=== PATIENT | female | born 1940 | race Caucasian/White ===

== ENCOUNTER 2019-09-13 03:21 | Observation (INO) | payer MEDICARE, OTHER ==
[~2019-09-13] VITALS: Ht 154.9 cm; Wt 49.0 kg
[2019-09-13 04:06] LABS: HEMATOCRIT 42.6 % (37.0-47.0); HEMOGLOBIN 14.7 g/dl (12.5-16.0); MEAN CELL VOLUME 92 fl (80.0-100.0); MEAN CORPUSCULAR HEMOGLOBIN 32 pg (27.0-31.0); MEAN CORPUSCULAR HGB CONC 35 g/dl (33.0-37.0); MEAN PLATELET VOLUME 8.5 fl (7.4-10.4); PLATELET COUNT 377 K/mm3 (130-400); RED BLOOD COUNT 4.65 M/mm3 (4.10-5.30); REDCELL DISTRIBUTION WIDTH-CV 12.6 % (11.5-14.5)
[2019-09-13] MEDS ORDERED: TENORMIN 2525 MG/TAB PO (04:11)
[2019-09-13] MEDS ORDERED: COZAAR 50MG50 MG/TAB PO (04:11)
[2019-09-13] MEDS ORDERED: ASPIRIN 81M81 MG/TA2 PO (04:12)
[2019-09-13] MEDS ORDERED: CENTRUM SILVER1 CTB PO (04:12)
[2019-09-13] MEDS ORDERED: CALTRATE-600 W600 MG PO (04:12)
[2019-09-13 04:14] LABS: ALBUMIN 4.3 gm/dL (3.5-5.0); BILIRUBIN,TOTAL 0.6 mg/dL (0.0-1.0); CALCIUM 9.6 mg/dL (8.4-10.2); CREATININE, serum 0.71 (0.52-1.25); POTASSIUM 3.9 mmol/L (3.4-5.0); TOTAL PROTEIN 7.5 gm/dL (6.4-8.2)
[2019-09-13 04:44] LABS: BAND 5 % (0-10); LYMPHOCYTE 4 % (20.0-51.0); NEUTROPHILS 91 % (42.0-75.2); PLATELET ESTIMATE NORMAL (NORMAL)
[2019-09-13 06:45] VITALS: BP 119/60; PULSE 89; TEMP 97.7
--- NOTE | 2019-09-13 06:55 | NUR ---
Patient arrives to floor from ED via bed. Patient is alert and oriented, answers questions appropriately. Patient is hard of hearing, but is able to understand and answer questions. Patient reports that she has mild nausea and pain is localized to the left upper quadrent and back. Bowel sounds are hypoactive but present, patient states that she had a bowel movement in the ED prior to coming to the floor. Patient denies needs at this time, call light within reach.
[2019-09-13 07:24] VITALS: BP 119/60; PULSE 89; TEMP 97.7
--- NOTE | 2019-09-13 10:32 | NUR ---
Initial visit; Patient thanked Foiling Machine Adjuster for offering spiritual care, especially prayer and for calling [facility] to let them know she is a patient at [facility].
[2019-09-13 12:00] VITALS: BP 144/62; PULSE 88; TEMP 97.8
[2019-09-13 13:42] LABS: BASO # 0.1 (0.0-0.2); BASO % 0.5 % (0.0-2.0); EOS % 0.1 % (0-4.0); GRAN # 7.8 (1.4-6.5); LYMPH # 1.4 (1.2-3.4); LYMPH % 14.3 % (20.0-51.0); MEAN CELL VOLUME 91 fl (80.0-100.0); MEAN CORPUSCULAR HGB CONC 35 g/dl (33.0-37.0); MEAN PLATELET VOLUME 8.4 fl (7.4-10.4); MONO # 0.6 (0.1-0.6); MONO % 5.8 % (1.7-9.3); PLATELET COUNT 303 K/mm3 (130-400); RED BLOOD COUNT 3.88 M/mm3 (4.10-5.30); REDCELL DISTRIBUTION WIDTH-CV 12.6 % (11.5-14.5)
[2019-09-13 13:43] LABS: HEMATOCRIT 35.2 % (37.0-47.0); HEMOGLOBIN 12.3 g/dl (12.5-16.0); MEAN CORPUSCULAR HEMOGLOBIN 32 pg (27.0-31.0)
[2019-09-13 13:52] LABS: CREATININE, serum 0.58 (0.52-1.25); POTASSIUM 3.5 mmol/L (3.4-5.0)
[2019-09-13 16:16] VITALS: BP 182/80; PULSE 85; TEMP 98.6
--- NOTE | 2019-09-13 16:21 | NUR ---
Pinion And Wheel Truer met with patient to discuss discharge planning. Patient expressed she is not feeling well but agreed to answer some questions. Patient lives with her Ed in [place] and sees Dr. Keller for primary care. Patient obtains medications from [facility] with no difficulties. Patient does not use any DME and reports independence with ADLS. Patient reports she has DPOA-HC but SW did not locate copy in EMR. SW to continue to follow as needed.
[2019-09-13 19:37] VITALS: BP 155/65; PULSE 82; TEMP 98.8
--- NOTE | 2019-09-13 19:39 | NUR ---
Patient resting in bed at this time. Patient reports that she is still feeling some nausea, and still has a headache, denies further needs at this time. Daughter at bedside, call light within reach.
[2019-09-13 23:51] VITALS: BP 139/57; PULSE 73; TEMP 98.1
--- NOTE | 2019-09-14 01:21 | NUR ---
Patient doing well tonight. alert and oriented. c/o headache at shift change, prn tylenol given and headache resolved. c/o mild upper abd pain. mild distention noted, bowel sounds active. patient had x2 loose brown stools. IVF infusing to R AC IV. tele showing sinus rhythm. tolerating clears, denies nausea. ambulates with standby assist in room. no further needs at this time. will continue to monitor.
[2019-09-14 04:01] VITALS: BP 144/57; PULSE 70; TEMP 97.8
[2019-09-14 06:39] LABS: BASO % 0.5 % (0.0-2.0); EOS % 0.4 % (0-4.0); GRAN % 68.7 % (42.2-75.2); HEMOGLOBIN 11.8 g/dl (12.5-16.0); LYMPH # 1.7 (1.2-3.4); LYMPH % 23.7 % (20.0-51.0); MEAN CELL VOLUME 95 fl (80.0-100.0); MEAN CORPUSCULAR HEMOGLOBIN 32 pg (27.0-31.0); MEAN CORPUSCULAR HGB CONC 34 g/dl (33.0-37.0); MEAN PLATELET VOLUME 8.7 fl (7.4-10.4); MONO # 0.5 (0.1-0.6); MONO % 6.4 % (1.7-9.3); PLATELET COUNT 276 K/mm3 (130-400); RED BLOOD COUNT 3.68 M/mm3 (4.10-5.30); REDCELL DISTRIBUTION WIDTH-CV 12.9 % (11.5-14.5)
[2019-09-14 06:53] LABS: CALCIUM 8.5 mg/dL (8.4-10.2); CREATININE, serum 0.6 (0.52-1.25); HEMATOCRIT 34.8 % (37.0-47.0); POTASSIUM 3.7 mmol/L (3.4-5.0)
--- NOTE | 2019-09-14 08:00 | NUR ---
Patient resting in bed eating breakfast at this time. Patient is alert and oriented, answers questions appropriately. Patient reports that she does not have abomen or back pain at this time, and is not nauseous. Patient reports that she has had several loose stools overnight. Patient denies needs at this time, call light within reach.
[2019-09-14 08:01] VITALS: BP 153/59; PULSE 69; TEMP 97.5
[2019-09-14 11:36] VITALS: BP 149/62; PULSE 70; TEMP 97.3
[2019-09-14 15:30] VITALS: BP 137/61; PULSE 65; TEMP 98.1
--- NOTE | 2019-09-14 17:50 | NUR ---
Discharge teaching completed. Patient and daughter present. Discussed discharge instructions, activity and diet restrictions, follow up appointments, and indications of complications. Patient and daughter deny questions, concerns, or needs. IV removed, catheter intact, hemostasis achieved. Patient dressed and escorted to patient entrace where she entered a private vehicle.
== END 2019-09-14 18:00 | disposition home or self-care (01) ==
LOC: COL.ER 03:21 → SURG 05:51
PROVIDERS: Emergency Medicine; ADMIT Surgery
DX: R11.2 Nausea with vomiting, unspecified (principal); R10.9 Unspecified abdominal pain; Z90.710 Acquired absence of both cervix and uterus; Z85.3 Personal history of malignant neoplasm of breast; Z88.0 Allergy status to penicillin; Z88.1 Allergy status to other antibiotic agents; Z79.82 Long term (current) use of aspirin
CPT/HCPCS: G0378; J0692; J1170; J2405; J3010; J7030; Q9967

== ENCOUNTER 2020-11-09 08:37 | Emergency (ER) | payer MEDICARE, OTHER ==
[~2020-11-09] VITALS: Ht 162.6 cm; Wt 48.2 kg
[~2020-11-09 08:37] MED LIST: ASPIRIN 81M81 MG/TA2 PO; CALTRATE-600 W600 MG PO; CENTRUM SILVER1 CTB PO; COZAAR100 MG PO; TENORMIN 2525 MG/TAB PO
[2020-11-09 08:49] VITALS: TEMP 98.8
[2020-11-09 09:00] LABS: COLLECTION METHOD CLEAN CATCH
[2020-11-09 09:05] LABS: PH 6 (5-8); SQUAMOUS EPITHELIAL 0-2 /hpf; URINE APPEARANCE Clear; URINE BACTERIA None Seen /hpf; URINE BILIRUBIN Negative (NEGATIVE); URINE BLOOD 3+ (NEGATIVE); URINE COLOR Yellow; URINE GLUCOSE Negative (NEGATIVE); URINE KETONE Negative (NEGATIVE); URINE LEUKOCYTE ESTERASE Trace (NEGATIVE); URINE NITRATE Negative (NEGATIVE); URINE PROTEIN(semi-quant) Negative (NEGATIVE); URINE RBC 0-2 /hpf; URINE UROBILINOGEN Negative (NEGATIVE)
[2020-11-09 09:15] LABS: BASO % 0.7 % (0.0-2.0); EOS % 0.7 % (0-4.0); GRAN # 3.3 (1.4-6.5); GRAN % 77.9 % (42.2-75.2); HEMOGLOBIN 11.2 g/dl (12.5-16.0); LYMPH # 0.6 (1.2-3.4); LYMPH % 14.8 % (20.0-51.0); MEAN CELL VOLUME 99 fl (80.0-100.0); MEAN CORPUSCULAR HEMOGLOBIN 32 pg (27.0-31.0); MEAN CORPUSCULAR HGB CONC 32 g/dl (33.0-37.0); MEAN PLATELET VOLUME 8.5 fl (7.4-10.4); MONO # 0.2 (0.1-0.6); MONO % 5.7 % (1.7-9.3); PLATELET COUNT 288 K/mm3 (130-400); REDCELL DISTRIBUTION WIDTH-CV 13.3 % (11.5-14.5)
[2020-11-09 09:16] LABS: HEMATOCRIT 34.7 % (37.0-47.0)
[2020-11-09] MEDS ORDERED: CARAFATE 1GM1 G PO (09:18)
[2020-11-09 09:22] LABS: INR 1.1 (0.8-3.0); PROTHROMBIN TIME 12.3 SECONDS (9.7-12.8)
[2020-11-09 09:26] LABS: ALANINE AMINOTRANSFERASE 17 U/L (4-34); ALBUMIN 3.6 gm/dL (3.5-5.0); ALKALINE PHOSPHATASE 83 U/L (50-136); ANION GAP 8 mmol/L (7-16); AST,SGOT 22 U/L (15-37); BILIRUBIN,TOTAL 0.4 mg/dL (0.0-1.0); BLOOD UREA NITROGEN 14 mg/dL (7-17); CARBON DIOXIDE 23 mmol/L (22-30); CHLORIDE 104 mmol/L (98-107); CREATININE, serum 0.59 (0.52-1.25); GLUCOSE 154 mg/dL (74-106); POTASSIUM 3.2 mmol/L (3.4-5.0); SODIUM 135 mmol/L (137-145); TOTAL PROTEIN 6.4 gm/dL (6.4-8.2)
[2020-11-09 09:40] LABS: TROPONIN-I < 0.012 ng/mL (0.000-0.035)
[2020-11-09 09:47] LABS: LIPASE 146 U/L (23-300)
[2020-11-09 11:00] VITALS: BP 127/61; PULSE 67
== END 2020-11-09 11:01 | disposition home or self-care (01) ==
LOC: COL.ER 08:37
PROVIDERS: Emergency Medicine
DX: N20.0 Calculus of kidney (principal); Z88.0 Allergy status to penicillin; Z88.1 Allergy status to other antibiotic agents; Z79.82 Long term (current) use of aspirin
CPT/HCPCS: J7030; Q9967

== ENCOUNTER → 2021-01-26 | Outpatient (CLI) | payer MEDICARE, OTHER ==
[~2021-01-26] MED LIST changes: +CALCIUM 600MG+D1 TAB PO; +CARAFATE 1GM1 G PO; +NORCO 325 MG-51 TAB PO; +PYRIDIUM 100MG100 MG PO
== END ==
LOC: COL.RAD 09:54
DX: K85.80 Other acute pancreatitis without necrosis or infection (principal)
CPT/HCPCS: Q9967

== ENCOUNTER 2021-02-26 06:18 | Day surgery (SDC) | payer MEDICARE, OTHER ==
[~2021-02-26] VITALS: Ht 161.3 cm; Wt 49.8 kg
[~2021-02-26 06:18] MED LIST changes: -CALCIUM 600MG+D1 TAB PO; -NORCO 325 MG-51 TAB PO; -PYRIDIUM 100MG100 MG PO
[2021-02-26] MEDS ORDERED: CALCIUM 600MG+D1 TAB PO (07:10)
[2021-02-26 07:21] VITALS: BP 112/56; PULSE 68; TEMP 99.1
[2021-02-26] MEDS ORDERED: NORCO 325 MG-51 TAB PO (08:41)
[2021-02-26] MEDS ORDERED: PYRIDIUM 100MG100 MG PO (08:41)
[2021-02-26 10:00] VITALS: BP 128/59; PULSE 74; TEMP 98.4
--- NOTE | 2021-02-26 10:00 | NUR ---
Pt returns to [facility] from PACU, awake and alert. VSS. Daughter at bedside. Dynamap connected and will continue to monitor. Pt complains of left back pain, 7/10 encouraged to eat and drink something and then she can have a pain pill. Call light in reach.
[2021-02-26 10:08] VITALS: TEMP 98.3
[2021-02-26 10:15] VITALS: BP 133/59; PULSE 73
--- NOTE | 2021-02-26 10:15 | NUR ---
Pt given coffee and muffin and tolerates well. VSS, call light in reach.
[2021-02-26 10:30] VITALS: BP 134/58; PULSE 72
--- NOTE | 2021-02-26 10:30 | NUR ---
Pt up to the bathroom, gait steady, able to void, urine pink no clots or bright red bleeding noted. Reports mild improvement with urinating but once back in bed reports increase in pain. Will give pain medication as ordered. VSS.
[2021-02-26 10:45] VITALS: BP 125/62; PULSE 70
--- NOTE | 2021-02-26 11:15 | NUR ---
Pt awake and alert and had some hot water per request, reports pain now manageable. O2 sats 100% on room air.
--- NOTE | 2021-02-26 11:45 | NUR ---
Discharge instructions provided to pt and her daughter, understanding verbalized. Pt to the bathroom and voids again, taken via wheelchair to private and left in care of her daughter at 1200.
== END 2021-02-26 12:00 | disposition home or self-care (01) ==
LOC: SDCO 06:18
DX: N20.0 Calculus of kidney (principal); E78.00 Pure hypercholesterolemia, unspecified; I10 Essential (primary) hypertension; R31.0 Gross hematuria; R10.32 Left lower quadrant pain; R10.12 Left upper quadrant pain; M19.90 Unspecified osteoarthritis, unspecified site; F41.9 Anxiety disorder, unspecified; Z20.822 Contact with and (suspected) exposure to COVID-19; Z90.710 Acquired absence of both cervix and uterus; Z90.13 Acquired absence of bilateral breasts and nipples; Z79.899 Other long term (current) drug therapy; Z79.82 Long term (current) use of aspirin
CPT/HCPCS: C1769; C2617; J0690; J1100; J2250; J2405; J2704; J3010; J7120; Q9967

== ENCOUNTER → 2021-09-15 | Outpatient (CLI) | payer MEDICARE, OTHER ==
[~2021-09-15] MED LIST changes: +CALCIUM 600MG+D1 TAB PO; +NORCO 325 MG-51 TAB PO; +PYRIDIUM 100MG100 MG PO
[2021-09-15 12:26] LABS: BASO # 0.1 K/mm3 (0.0-0.2); BASO % 0.8 % (0.0-2.0); EOS % 0.5 % (0.0-4.0); GRAN # 4.6 K/mm3 (1.4-6.5); GRAN % 71.1 % (42.2-75.2); HEMATOCRIT 41.2 % (37.0-47.0); HEMOGLOBIN 14.1 g/dl (12.5-16.0); LYMPH # 1.3 K/mm3 (1.2-3.4); LYMPH % 20.2 % (20.0-51.0); MEAN CELL VOLUME 95 fl (80.0-100.0); MEAN CORPUSCULAR HEMOGLOBIN 33 pg (27-31); MEAN CORPUSCULAR HGB CONC 34 g/dl (33.0-37.0); MONO # 0.5 K/mm3 (0.1-0.6); MONO % 7.1 % (1.7-9.3); PLATELET COUNT 354 K/mm3 (130-400); RED BLOOD COUNT 4.34 M/mm3 (4.10-5.30); REDCELL DISTRIBUTION WIDTH-CV 12.3 % (11.5-14.5)
[2021-09-15 12:36] LABS: ALBUMIN 4.4 gm/dL (3.4-4.8); C-REACTIVE PROTEIN 0.05 mg/dL (0.00-0.50); CALCIUM 9.3 mg/dL (8.4-10.2); CREATININE, serum 0.95 mg/dL (0.57-1.11); POTASSIUM 3.7 mmol/L (3.5-4.5); TOTAL PROTEIN 7.5 gm/dL (6.2-8.1)
[2021-09-15 12:56] LABS: ERYTHROCYTE SEDIMENTATION RATE 7 mm/hr (0-30)
[2021-09-15 13:04] LABS: BILIRUBIN,TOTAL 0.8 mg/dL (0.2-1.2)
[2021-09-15 14:31] LABS: CLOSTRIDIUM DIFF A/B NEG; CLOSTRIDIUM DIFF A/B INTERP No C.diff present
== END ==
LOC: ZCOL.LAB 11:25
PROVIDERS: Internal Medicine
DX: R19.7 Diarrhea, unspecified (principal); R10.32 Left lower quadrant pain

== ENCOUNTER → 2022-03-08 | Outpatient (CLI) | payer MEDICARE, OTHER | LOC: COL.RAD 08:30 | DX: N13.2 Hydronephrosis with renal and ureteral calculous obstruction (principal); Z87.440 Personal history of urinary (tract) infections ==

== ENCOUNTER 2023-08-23 15:16 | Day surgery (SDC) | payer MEDICARE, OTHER ==
[~2023-08-23] VITALS: Ht 162.6 cm; Wt 44.0 kg
[~2023-08-23 15:16] MED LIST changes: +LR 1,000 ML IV SCH; +OMNICEF 300MG300 MG PO
[2023-08-23] MEDS ORDERED: LEVAQUIN 5500 MG/TA1 PO (15:55)
[2023-08-23] MEDS ORDERED: TYLENOL 325MG325 MG PO (15:55)
[2023-08-23 16:47] VITALS: BP 126/51; PULSE 74; TEMP 97.4
--- NOTE | 2023-08-23 17:04 | NUR ---
1532 Pt ambulatory to bay 3 with a steady gait, breathing even and unlabored. Pt is alert and oriented. Accompanied by her daughters. Consents reviewed and signed by pt. IV established. LR infusing via gravity at KVO. Call light in reach. Warm blankets provided. Bear hugger blanket applied at daughters' request. Pt reports being nice and warm.
[2023-08-23] MEDS ORDERED: Ondansetron 4 MG/2 ML VIAL ONE (17:17)
[2023-08-23] MEDS ORDERED: Lidocaine PF 2% (20 MG/ML) 5 ML VIAL ONE (17:17)
[2023-08-23] MEDS ORDERED: fentaNYL 50 MCG/ML 2 ML VIAL ONE (17:40)
[2023-08-23] MEDS ORDERED: Lidocaine 2% (20 MG/ML) 20 ML UROJET UR ONE (17:40)
[2023-08-23] MEDS ORDERED: hydrALAZINE 20 MG/ML 1 ML VIAL IV PRN (18:30)
[2023-08-23] MEDS ORDERED: fentaNYL 50 MCG/ML 2 ML VIAL IV PRN (18:30)
[2023-08-23] MEDS ORDERED: Ondansetron 4 MG/2 ML VIAL IV PRN ×2 (18:30→18:45)
[2023-08-23] MEDS ORDERED: Naloxone 0.4 MG/ML VIAL IV PRN (18:45)
[2023-08-23] MEDS ORDERED: Acetaminophen 325 MG TAB PO PRN (18:45)
[2023-08-23] MEDS ORDERED: oxyCODONE 5 MG TAB PO PRN (18:45)
[2023-08-23] MEDS ORDERED: Morphine 4 MG/ML VIAL IV PRN (18:45)
[2023-08-23] MEDS ORDERED: Hyoscyamine 0.125 MG Sublingual TAB SL PRN (18:45)
[2023-08-23 19:08] VITALS: BP 160/74; PULSE 76; TEMP 97.5
[2023-08-23 19:20] VITALS: BP 157/65; PULSE 68
[2023-08-23 19:35] VITALS: BP 150/64; PULSE 76; TEMP 97.9
[2023-08-23] MEDS ORDERED: Acetaminophen 500 MG TAB PO SCH (19:35)
[2023-08-23 19:50] VITALS: BP 138/70; PULSE 74
--- NOTE | 2023-08-23 20:00 | NUR ---
1907 RETURNS TO ROOM 3 PER CART. AWAKE, ALERT. RESP UNLABORED. HOB ELEVATED 30 DEGREES. ABD SOFT. REPORTS URINARY URGENCY, AND LEFT FLANK AREA "ACHE". VITAL SIGNS OBTAINED. CALL LIGHT AT SIDE. DAUGHTERS IN ROOM 1914 TRANSFERS TO BEDSIDE COMMODE WITH ASSISTANCE. VOIDS LIGHT PINK URINE WITHOUT DIFFICULTY 1929 CONVERSES WITH DAUGHTERS. REPORTS CONTINUED URINARY URGENCY. AGAIN TRANSFERS TO COMMODE WITH ASSIST. VOIDS MODERATE AMOUNT. URINE LIGHT PINK. REPORTS INCREASED COMFORT 1944 TOLERATES PO WATER AND SMALL AMOUNT OF MUFFIN OFFERED BY DAUGHTER WITHOUT NAUSEA. 1949 DISCHARGE INSTRUCTIONS REVIEWED. PATIENT AND DAUGHTERS VERBALIZE UNDERSTANDING. COPY PROVIDED IN DISCHARGE FOLDER 1955 UP TO BEDSIDE COMMODE. VOIDS. DRESSES WITH ASSISTANCE FROM DAUGHTERS. REPORTS MILD LEFT FLANK DISCOMFORT AND DECREASED URINARY URGENCY
== END 2023-08-23 20:05 | disposition home or self-care (01) ==
LOC: SDCO 15:16
DX: N20.0 Calculus of kidney (principal); N30.00 Acute cystitis without hematuria; R30.0 Dysuria
CPT/HCPCS: C1769; C2617; J2405; J2704; J3010; J7120